=== PATIENT | female | born 1945 | race Caucasian/White ===

== ENCOUNTER 2017-12-24 00:19 | Day surgery (SDC) | payer MEDICARE, OTHER ==
[~2017-12-24] VITALS: Ht 160 cm; Wt 68.9 kg
[~2017-12-24 00:19] MED LIST: ALP5 PO; AMLO-96 PO; ANAS1TAB34 PO; ANAS1TAB35 PO; CALCIUM PO; CRAN400C2 PO; CYCL1DRO6 OP; EAC PO; FISH1CAP15 PO; GLUC-198 PO; HYDR-385 PO; LEV88 PO; LISINOPRIL PO; LUTE20CA11 PO; METO50TA19 PO; MULT1TAB64 PO; OLME1TAB60 PO; PRE5 PO; PRED2.5T6 PO; RANI150T PO; TRAM-420 PO; [UNRECOGNIZED DRUG - CODE] PO
--- NOTE | 2017-12-24 06:59 | Post Operative Progress Note ---
Post Operative Progress Note Date: December 24, 2017 Time: 09:31 Surgeon: parth Anesthesia: dr peters Pre-Op Diagnosis: screening colonoscopy Post-Op Diagnosis: normal exam Procedure(s): colonoscopy JEREMY ROSE MD December 24, 2017 06:59
--- NOTE | 2017-12-24 06:59 | Short(Outpt) Discharge Summary ---
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, ONC 03/09/17 Reported Medications Metoprolol Succinate (METOPROLOL SUCCINATE) 50 Mg Tab.er.24h, 1 TAB PO QDAY, TAB 12/21/17 Cyclosporine (RESTASIS) 1 Each Droperette, 1 EACH OP BID 06/04/17 Prednisone (PREDNISONE) 2.5 Mg Tablet, 5 MG PO QDAY 03/26/15 Cranberry (CRANBERRY) 400 Mg Capsule, 400 MG PO QDAY, CAPSULE 06/27/13 Lutein (LUTEIN) 20 Mg Capsule, 20 MG PO QDAY, CAPSULE 06/27/13 Calcium Carbonate/Vitamin D3 (CALCIUM 500+VIT D 400 TAB) 1 Each Tablet, 1 EACH PO 06/27/13 Fish Oil/Dha/Epa (FISH OIL 1,200 MG FISH OIL) 1 Each Capsule, 1 EACH PO BID, CAPSULE 06/27/13 Multivitamin (MULTI VITAMIN DAILY) 1 Each Tablet, 1 EACH PO QDAY 06/27/13 Glucosa Bryant 2KCL/Chondroitin Bryant (GLUCOSAMINE & CHONDROITIN CAP) 1 Each Capsule, 1 EACH PO QDAY, CAPSULE 06/27/13 Naratriptan Hcl (AMERGE) 2.5 Mg Tab, 2.5 MG PO Y for HEADACHE, TAB 06/27/13 Amlodipine Besylate (AMLODIPINE BESYLATE) 5 Mg Tablet, 10 MG PO HS, TAB TAKE ONE TABLET BY MOUTH EVERY DAY 06/27/13 Olmesartan/Hydrochlorothiazide (BENICAR HCT 40-12.5 MG TABLET) 1 Each Tablet, 1 EACH PO QDAY 06/27/13 Alprazolam (Xanax) 0.5 Mg Tab, 0.5 MG PO PRN, 0 Refills 05/26/08 Ranitidine Hcl (Ranitidine Hcl) 150 Mg Tablet, 150 MG PO BID, 0 Refills 05/26/08 Levothyroxine Sodium (Synthroid/Levothroid) 0.088 Mg Tab, 88 MCG PO QDAY, 0 Refills 05/26/08 Discontinued Reported Medications Tramadol Hcl (TRAMADOL HCL) 50 Mg Tablet, 50 MG PO Q4-6H, TAB 06/12/17 Diet: Regular Activity: As Tolerated JEREMY ROSE MD December 24, 2017 06:59
[2017-12-24] MEDS ORDERED: PROPOFOL EMUL(*) 10MG/ML 20 ML 40 ML ONE (07:11)
[2017-12-24 07:50] VITALS: BP 134/80
[2017-12-24] MEDS ORDERED: NORMOSOL R SOLN(*) 1000 ML BAG 1,000 ML IV PRN (07:55)
[2017-12-24] MEDS ORDERED: HYDROCORTISONE 100 MG/2 ML IVP ONE (07:55)
[2017-12-24] MEDS ORDERED: LIDOCAINE/SOD BICARB 8.4% SYR ID ONE (07:55)
[2017-12-24 09:33] VITALS: BP 106/63
[2017-12-24 09:47] VITALS: BP 112/72
[2017-12-24 10:14] VITALS: BP 110/78
[2017-12-24 10:19] VITALS: BP 133/93
[2017-12-24 10:20] VITALS: BP 128/82
--- NOTE | 2017-12-24 15:13 | OPERATIVE REPORT 1 ---
EVENT DATE: December 24, 2017 SURGEON: Calderon Bhatt MD ANESTHESIOLOGIST: Luis Brar MD ANESTHESIA: Sedation. PREOPERATIVE DIAGNOSIS Screening colonoscopy. POSTOPERATIVE DIAGNOSIS Normal-appearing colonoscopic examination. PROCEDURE PERFORMED Colonoscopy. DESCRIPTION OF PROCEDURE Patient was placed in the left lateral decubitus position and given intravenous sedation. Perianal examination revealed some external hemorrhoidal skin tags. Digital exam was unremarkable. Flexible colonoscope was inserted and advanced to the cecum. She had an excellent bowel prep. The ileocecal valve and base of the cecum were identified. Scope was slowly withdrawn. Care was taken to look behind the haustral folds. No abnormalities were noted in the cecum, right colon, transverse, descending, or sigmoid colon. Rectum was normal. Scope was retroflexed. That appeared to be normal. [facility]
== END 2017-12-24 10:35 | disposition home or self-care (01) ==
LOC: OR 00:19
PROVIDERS: ATTEND Surgery
DX: Z12.11 Encounter for screening for malignant neoplasm of colon (principal)
CPT/HCPCS: 00812; G0121; J1720; J2704

== ENCOUNTER 2018-01-19 08:52 | Outpatient (RCR) | payer MEDICARE, OTHER ==
[2018-01-20] MEDS ORDERED: OLME1TAB63 PO (11:38)
== END 2018-01-20 11:06 | disposition home or self-care (01) ==
LOC: RAON 08:52
PROVIDERS: ATTEND Radiology Radiation Oncology
DX: C50.912 Malignant neoplasm of unspecified site of left female breast (principal); Z17.0 Estrogen receptor positive status [ER+]; Z79.811 Long term (current) use of aromatase inhibitors; I10 Essential (primary) hypertension; D69.3 Immune thrombocytopenic purpura; Z92.3 Personal history of irradiation; Z79.899 Other long term (current) drug therapy
CPT/HCPCS: 99213

== ENCOUNTER → 2018-08-04 | Outpatient (CLI) | payer MEDICARE, OTHER ==
[~2018-08-04] MED LIST changes: +AMLO-111 PO; -AMLO-96 PO; +ANAS1TAB12 PO; -ANAS1TAB35 PO; +OLME1TAB63 PO
--- NOTE | 2018-08-04 16:27 | RADIOLOGY IMAGING REPORT ---
FACILITY: [facility] PATIENT NAME: ADDISON ALEXANDRA : [id number] MR: [id number] V: [id number] EXAM DATE: [id number] ORDERING PHYSICIAN: GENOVEVA TORREZ TECHNOLOGIST: Saira Andersen PROCEDURE:BILATERAL DIAGNOSTIC DIGITAL MAMMOGRAM WITH CAD ASSISTED INTERPRETATION & 3D TOMOSYNTHESIS COMPARISON:Prior mammograms 07/15/17, 07/07/16, 01/03/16, 07/16/15, 01/02/15. INDICATIONS:HX BREAST CA IN 2013 ON THE LEFT FINDINGS: Scattered fibroglandular densities are seen throughout the breasts. The parenchymal pattern has remained stable allowing for difference in mammographic technique & patient positioning. Area of postsurgical scaring with architectural distortion in the upper outer quadrant of the Left breast posterior 1/3 is again seen. Loosely grouped course heterogeneous calcifications are seen in the operative site. DIAGNOSTIC CATEGORY 2--BENIGN FINDING. RECOMMENDATIONS: ROUTINE MAMMOGRAM AND CLINICAL EVALUATION. IMPRESSION: BIRADS 2: Benign finding. Postsurgical changes from lumpectomy in the upper outer quadrant of the Left breast appear stable. Dictated by: Sarika Boles M.D. on 08/04/2018 at 14:29 Transcribed by: ELIJAH on 08/04/2018 at 14:56 Approved by: Sarika Boles M.D. on 08/04/2018 at 16:26 [facility]
== END ==
LOC: MAMO 07:41
PROVIDERS: ATTEND Nurse Practitioner Family
DX: R92.8 Other abnormal and inconclusive findings on diagnostic imaging of breast (principal)
CPT/HCPCS: 77062; 77066

== ENCOUNTER → 2018-08-04 | Outpatient (CLI) | payer MEDICARE, OTHER ==
--- NOTE | 2018-08-04 14:03 | RADIOLOGY IMAGING REPORT ---
[place] [facility] [place] NAME: Shasha Lane : 1945 MR: [id number] V: [id number] EXAM DATE: ORDERING PHYSICIAN: MACI CERNA TECHNOLOGIST: Location: [facility] - [place], [place] Patient: Shasha Lane : 1945 Visit/Account:[id number] Date of Sevice: 08/04/2018 DEXA Scan Clinical history: Ovarian failure. Comparison: DEXA scan from 01/07/2017. LUMBAR SPINE: The bone mineral density (BMD) measured from L1-L4 correlates with a Z-score of 3.8 and a T-score of 2.3 which is Normal as defined by the World Health Organization. The corresponding risk of fracture in the lumbar spine is Not increased compared with a young adult reference population. This value granados s increased by 0.3 % since the prior study. More than 5% change is considered significant. HIP: Bone mineral density (BMD) measured in the LEFT total hip region correlates with a Z-score 1.2 and a T-score of -0.2 which is normal as defined by the World Health Organization. The corresponding risk of fracture in the hip is Not i ncreased compared to a young adult reference population. This value has decrease by 0.5 % since the p rior study. More than 5% change is considered significant. T score left femoral neck -1.1 Bone mineral density (BMD) measured in the Femoral Neck region measures 0.890 g/cm?. IMPRESSION: 1. Lumbar spine: Normal. There has been 0.3% increase in the bone mineral density since the previou s exam. 2. Left Total Hip: Normal. There has been 0.5% decrease in the bone mineral density since the previ ous exam. 3. Femoral Neck: Bone Mineral Density is 0.890 g/cm? The next DEXA scan of this patient should include the following sites: L1-L4 and the left hip. FRAX? WHO Fracture Risk Assessment Tool link: <http://www.shef.ac.uk/FRAX/tool.jsp?locationValue=9> PLEASE NOTE: 1) The World Health Organization defines low BMD as follows: T-score Normal > -1 Osteopenia < -1 and > -2.5 Osteoporosis < -2.5 without fractures Established osteoporosis < -2.5 with fractures 2) In general, you may wish to consider: Diagnosis Treatment Follow-up DEXA Normal BMD Prevention 2-3 years Osteopenia Prevention/therapy 1-2 years Osteoporosis Therapy Yearly 3) Fracture risk estimated from the T-score is more accurate for vertebral fractures (often spontane ous) than for hip fractures. Report Dictated By: Sarika Boles MD at 08/04/2018 1:58 PM Report E-Signed By: Sarika Boles MD at 08/04/2018 1:59 PM WSN:[id number]
== END ==
LOC: RAD 07:35
PROVIDERS: ATTEND Nurse Practitioner Family
DX: E28.39 Other primary ovarian failure (principal)
CPT/HCPCS: 77080

== ENCOUNTER 2018-08-09 08:53 | Outpatient (RCR) | payer MEDICARE, OTHER ==
[~2018-08-09 08:53] MED LIST changes: -AMLO-111 PO; +AMLO-125 PO
[2018-08-09 09:11] VITALS: BP 116/78
[2018-08-09] MEDS ORDERED: PRED-416 PO (09:13)
--- NOTE | 2018-08-09 14:34 | ONCOLOGY FOLLOW UP NOTE ---
EVENT DATE: August 09, 2018 CHIEF COMPLAINT Followup for Stage I left breast cancer. HISTORY OF PRESENT ILLNESS Patient is a 73-year-old female who is seen today in one year followup for Stage I left breast cancer. She has been on anastrazole since October 2013 and will complete a five year course at the end of September 2018. Overall, she feels well. She does have chronic arthralgias but feels that much of this is due to her mixed connective tissue disease. Prednisone dose has been decreased to 5 mg and she believes this is managing it without issue. Otherwise, she denies any new complaints. She does have a history of ITP but this has been quiescent. ONCOLOGY HISTORY Patient presented with a Stage I infiltrating ductal carcinoma of the left breast in July 2013. She underwent left lumpectomy with sentinel lymph node biopsy of July 12, 2013. This revealed a 1.1 cm area of infiltrating ductal carcinoma, grade 1, with negative margins. Completed adjuvant radiation on October 05, 2013. Began anastrozole in October 2013. PAST MEDICAL HISTORY 1. Left breast cancer, July 2013. 2. Mixed connective tissue disease. 3. ITP. 4. Carpal tunnel syndrome. 5. Migraine headaches. 6. Hypertension. PAST SURGICAL HISTORY 1. Left lumpectomy, July 12, 2013. 2. Bone spur removal, 1999. 3. Bilateral carpal tunnel release. 4. . FAMILY HISTORY Diabetes in her father. SOCIAL HISTORY The patient is . She and her remain busy traveling. She is a retired contract attorney. She does not smoke or drink alcohol. MEDICATIONS 1. Alprazolam. 2. Amlodipine. 3. Anastrozole. 4. Calcium/vitamin D. 5. Cyclosporin drops. 6. Levothyroxine. 7. Metoprolol. 8. Multi-vitamin. 9. Naratriptan. 10. Prednisone. 11. Olmesartan/hydrochlorothiazide. 12. Ranitidine. ALLERGIES PENICILLIN and WOOL. REVIEW OF SYSTEMS A 12-point review of systems is performed and is negative except as stated above. PHYSICAL EXAMINATION VITAL SIGNS: Weight 74.93 kg, BP 116/78, P 58, R 16, temperature 97.1, O2 sat 92%. GENERAL: Patient is a well-developed, well-nourished female in no acute distress. HEAD: Normocephalic, atraumatic. EYES: Sclerae anicteric. MOUTH: Moist mucous membranes. No lesions. NECK: Supple. No palpable adenopathy. BREASTS: Status post left lumpectomy with minimal scar tissue present. No evidence of recurrence. Right breast is without masses. LUNGS: Clear bilaterally. CARDIOVASCULAR: Heart rate regular, 58 per minute without murmur, S3 or S4. ABDOMEN: Soft, nontender with active bowel sounds. No organomegaly. EXTREMITIES: No edema. Some arthritic changes noted in her hands. NEURO: Nonfocal. IMPRESSION AND PLAN The patient is a 73-year-old female diagnosed with stage I left breast cancer in July 2013. Underwent lumpectomy. Completed adjuvant radiation on October 05, 2013. Began anastrazole in October 2013. 1. Breast cancer. No signs or symptoms of disease recurrence. She has tolerated her anastrazole fairly well. We reviewed that consideration could be given to continuing the anastrozole for a total of ten years. However, after discussing this with Dr. Serna he feels that it would likely be safe for her to stop this at this time. She will consider this and notify us of her decision but at this time feels she will finish out the month of September. 2. Bone health. Bone density on August 04, 2018 was within normal limits except for some slight osteopenia in the femoral neck. She continues calcium and vitamin D. She and her hike regularly. 3. Breast surveillance. Bilateral mammogram on August 04, 2018 was BI-RADS category 2. This will be repeated in August 2019. 4. Follow up with radiation oncology in January 2019. 5. Follow up with Dr. Serna in one year for continued care. CBC, CMP and mammogram will be done before that visit. BETINA
== END 2018-09-06 12:00 | disposition home or self-care (01) ==
LOC: ONC 08:53
PROVIDERS: ATTEND Internal Medicine
DX: C50.912 Malignant neoplasm of unspecified site of left female breast (principal); Z92.3 Personal history of irradiation; M85.80 Other specified disorders of bone density and structure, unspecified site; M35.9 Systemic involvement of connective tissue, unspecified; I10 Essential (primary) hypertension; Z86.2 Personal history of diseases of the blood and blood-forming organs and certain disorders involving the immune mechanism; G43.909 Migraine, unspecified, not intractable, without status migrainosus
CPT/HCPCS: 99212